=== PATIENT | female | born 1965 | race Caucasian/White ===

== ENCOUNTER 2018-12-09 08:03 | Day surgery (SDC) | payer OTHER ==
[~2018-12-09 08:03] MED LIST: CEFAZOLIN 1 GM/50 ML (PMX) 50 ML IVPB; SOD CHLORIDE 0.9% 1,000 ML IV
[2018-12-09] MEDS ORDERED: BUPIVACAINE 0.5%/EPI (SDV) 30 ML INJ (11:09)
[2018-12-09] MEDS ORDERED: LIDOCAINE 2% (SDV) 5 ML INJ (11:28)
[2018-12-09] MEDS ORDERED: PROPOFOL 20 ML (11:28)
[2018-12-09] MEDS ORDERED: MIDAZOLAM 1 MG/ML 2 ML INJ (11:28)
[2018-12-09] MEDS ORDERED: DIPHENHYDRAMINE 50 MG INJ IV (11:30)
[2018-12-09] MEDS ORDERED: PROCHLORPERAZINE 10 MG INJ IV (11:30)
[2018-12-09] MEDS ORDERED: OXYCODONE/ACETAMINOPHEN (5/325) TAB PO (11:30)
[2018-12-09] MEDS ORDERED: FENTAnyl 50 MCG/ML VIAL IV ×3 (11:30)
[2018-12-09] MEDS ORDERED: HYDROmorphONE 1 MG/5 ML IV SYRINGE IV ×3 (11:30)
[2018-12-09] MEDS ORDERED: ONDANSETRON 4 MG INJ (11:37)
[2018-12-09] MEDS ORDERED: FENTAnyl 50 MCG/ML VIAL (11:37)
[2018-12-09] MEDS ORDERED: DEXAMETHASONE 4 MG/ML 5 ML INJ (11:37)
[2018-12-09] MEDS ORDERED: CEFAZOLIN 1 GM INJ (11:37)
[2018-12-09] MEDS: BUPIVACAINE 0.5%/EPI (SDV) 30 ML INJ (11:52)
[2018-12-09] MEDS ORDERED: EPHEDrine SULFATE 50 MG/5 ML SYG (12:24)
[2018-12-09] MEDS ORDERED: HYDROCODONE/APAP (5/325) TAB PO (12:30)
[2018-12-09] MEDS ORDERED: ONDANSETRON 4 MG INJ IV (12:30)
[2018-12-09] MEDS ORDERED: IBUPROFEN 600 MG TAB PO (12:30)
[2018-12-09] MEDS: KETOROLAC 30 MG INJ IV (12:49)
[2018-12-09] MEDS: ONDANSETRON 4 MG INJ IV (12:49)
[2018-12-09] MEDS: MEPERIDINE 25 MG INJ IV (12:49)
== END 2018-12-09 14:10 | disposition home or self-care (01) ==
LOC: SDS 08:03
DX: D17.22 Benign lipomatous neoplasm of skin and subcutaneous tissue of left arm (principal); I10 Essential (primary) hypertension
CPT/HCPCS: 24073; 88307